=== PATIENT | female | born 2000 | race Caucasian/White ===

== ENCOUNTER 2021-10-25 12:45 | Outpatient (CLI) | payer OTHER, SELFPAY ==
--- NOTE | ~2021-10-25 | US_ITS ---
EXAMINATION: US OB follow up DATE: 10/25/2021 13:25 INDICATION: Low-lying placenta TECHNIQUE: Real-time ultrasound of the pelvis was performed. The interpreting radiologist was not pre sent for the study. COMPARISON: None. FINDINGS: There is a single living fetus in vertex presentation. The placenta is posterior and 7 cm f rom the internal cervical os. cardiac activity and movement are noted. heart rate i s 127 beats per minute (bpm). The amniotic fluid index is subjectively normal. The following biometric data were obtained: Biparietal diameter (BPD): 6.5 cm; head circumference (HC): 24.1 cm; abdominal circumference (AC): 20 .9 cm; femur length (FL): 4.8 cm. These measurements are concordant. Estimated weight is 864 g +/- 129 g, which correlates with the 19th percentile when 01/28/2022 i s used as estimated date of delivery. As single measurements, these parameters are each equal to the following estimated gestational ages w ith ranges of +/- 2 standard deviations: BPD: 26 weeks 3 days +/- 2 weeks 1 days. HC: 26 weeks 1 days +/- 2 weeks 0 days. AC: 25 weeks 4 days +/- 2 weeks 1 days. FL: 26 weeks 2 days +/- 2 weeks 1 days. estimated gestational age based solely on measurements from this exam is 26 weeks 1 days +/- 1 weeks 6 days. IMPRESSION: 1. Single living fetus in vertex presentation. 2. Estimated weight is 864 g +/- 129 g, which correlates with the 19th percentile when 2 is used as estimated date of delivery. 3. Normal placental position. Reviewed, dictated and finalized at location B. R HAND IMPRESSION: 1. Single living fetus in vertex presentation. 2. Estimated weight is 864 g +/- 129 g, which correlates with the 19th pe rcentile when 01/28/2022 is used as estimated date of delivery. 3. Normal placental position.
== END 2021-10-25 12:46 | disposition home or self-care (01) ==
PROVIDERS: Visit Provider Obstetrics & Gynecology
DX: O44.52 Low lying placenta with hemorrhage, second trimester (principal); Z3A.00 Weeks of gestation of pregnancy not specified
CPT/HCPCS: 76816

== ENCOUNTER 2022-05-04 11:12 | Outpatient (CLI) | payer OTHER, SELFPAY ==
--- NOTE | ~2022-05-04 | US_ITS ---
EXAMINATION: US pelvic complete w TV DATE: 05/04/2022 12:03 INDICATION: Pelvic pain TECHNIQUE: Multiple transabdominal and endovaginal sonographic images of the pelvis were obtained. COMPARISON: None. FINDINGS: The uterus measures 10 x 4.8 x 6 cm. An IUD is in expected position. The endometrial comple x measures 8 mm. The right ovary measures 4.0 x 2.5 x 3.4 cm. There is a 1.9 x 1.6 cm lesion of the r ight ovary with peripheral nodularity. The left ovary measures 2.1 x 1.1 x 1.4 cm. There is normal va scular flow in the ovaries. There is a small volume of likely physiologic free fluid in the pelvis. IMPRESSION: 1. Right ovarian lesion with peripheral nodularity which could reflect resolving hemorrhagic cyst. Fo llow-up ultrasound in 8-12 weeks is recommended. Reviewed, dictated and finalized at location B. IMPRESSION: 1. Right ovarian lesion with peripheral nodularity which could reflect resolvin g hemorrhagic cyst. Follow-up ultrasound in 8-12 weeks is recommended.
== END 2022-05-04 11:13 | disposition home or self-care (01) ==
LOC: ANHIMG 11:19
PROVIDERS: Visit Provider Obstetrics & Gynecology
DX: R10.2 Pelvic and perineal pain (principal)
CPT/HCPCS: 76830; 76856